=== PATIENT | male | born 1955 | race Caucasian/White ===

== ENCOUNTER 2020-09-15 19:43 | Emergency (ER) | payer MEDICAID ==
[~2020-09-15] VITALS: Ht 175.3 cm; Wt 79.0 kg
[2020-09-15] MEDS ORDERED: ACETAMINOPHEN 500MG TABLET PO ONE (20:30)
[2020-09-15] MEDS ORDERED: VISCOUS LIDOCAINE 2% 15 ML UDC MM NR (22:09)
[2020-09-15] MEDS ORDERED: CEFTRIAXONE SODIUM 1 G/VIAL IM NR (23:30)
[2020-09-16] MEDS: DEXAMETHASONE 4MG TABLET PO NR ×2 (00:10→00:18)
[2020-09-16 01:08] VITALS: BP 130/86
== END 2020-09-16 01:33 | disposition home or self-care (01) ==
LOC: ER 19:43
DX: J02.9 Acute pharyngitis, unspecified (principal); F32.9 Major depressive disorder, single episode, unspecified; E11.9 Type 2 diabetes mellitus without complications; I10 Essential (primary) hypertension
CPT/HCPCS: 70360; 70490; 71045; 96372; 99284; J0696; J8540

== ENCOUNTER 2021-07-09 01:22 | Emergency (ER) | payer MEDICAID ==
[~2021-07-09] VITALS: Ht 167.6 cm; Wt 80.0 kg
[2021-07-09 09:19] VITALS: BP 133/83
== END 2021-07-09 09:25 ==
LOC: ER 01:22
DX: F91.1 Conduct disorder, childhood-onset type (principal); E11.9 Type 2 diabetes mellitus without complications; K21.9 Gastro-esophageal reflux disease without esophagitis; F20.9 Schizophrenia, unspecified
CPT/HCPCS: 99283